=== PATIENT | male | born 1950 | race Caucasian/White ===

== ENCOUNTER 2022-05-25 10:43 | Emergency (ER) | payer OTHER, MEDICARE ==
[~2022-05-25] VITALS: Ht 185.4 cm; Wt 104.5 kg
[2022-05-25 10:46] VITALS: BP 140/69
[2022-05-25] MEDS ORDERED: LIDOcaine 1% 30ml preserv. free vial SQ STA (12:11)
[2022-05-25] MEDS ORDERED: TETanus/Pertussis (Acell)/Diphther VAC/PF (Tdap-Adult) 0.5ml syringe IMVAC ONE (12:15)
[2022-05-25] MEDS ORDERED: cephalexin 250mg capsule PO ONE (13:45)
[2022-05-25] MEDS ORDERED: HYDR-3965 PO (13:52)
[2022-05-25] MEDS ORDERED: CEPH-585 PO (13:52)
== END 2022-05-25 14:11 | disposition home or self-care (01) ==
LOC: ER 10:44
DX: S61.215A Laceration without foreign body of left ring finger without damage to nail, initial encounter (principal); S61.213A Laceration without foreign body of left middle finger without damage to nail, initial encounter; W45.8XXA Other foreign body or object entering through skin, initial encounter; Y93.89 Activity, other specified; Y92.89 Other specified places as the place of occurrence of the external cause; Y99.8 Other external cause status
CPT/HCPCS: 12001; 90471; 90715; 99283; A6222; J7030; A6223; A6258; A6449

== ENCOUNTER 2022-06-01 11:13 | Emergency (ER) | payer MEDICARE, OTHER ==
[~2022-06-01] VITALS: Ht 185.4 cm; Wt 104.5 kg
[~2022-06-01 11:13] MED LIST: CEPH-585 PO
[2022-06-01] MEDS ORDERED: bacitracin 15gm ointment TP ONE (11:50)
[2022-06-01 11:51] VITALS: BP 146/77
[2022-06-01] MEDS ORDERED: CEPH-585 PO (11:52)
--- NOTE | 2022-06-01 12:00 | NUR ---
Sutures removed by ED provider.
== END 2022-06-01 12:02 | disposition home or self-care (01) ==
LOC: ER 11:13
DX: L03.011 Cellulitis of right finger (principal); Z48.00 Encounter for change or removal of nonsurgical wound dressing; Z88.0 Allergy status to penicillin
CPT/HCPCS: 99283

== ENCOUNTER 2024-04-15 10:54 | Outpatient (CLI) | payer OTHER | END 2024-04-15 23:59 | disposition home or self-care (01) | LOC: RAD 10:54 | PROVIDERS: ATTEND Chiropractor | DX: I08.0 Rheumatic disorders of both mitral and aortic valves (principal); I44.4 Left anterior fascicular block; I49.1 Atrial premature depolarization; R00.0 Tachycardia, unspecified | CPT/HCPCS: 93005; 93306 ==